=== PATIENT | male | born 1950 | race Caucasian/White ===

== ENCOUNTER 2016-05-16 23:45 | Observation (INO) ==
[2016-05-17] MEDS ORDERED: ASPIRIN PO STA (00:11)
--- NOTE | 2016-05-17 00:12 | PROVIDER DOCUMENTATION ---
HPI-Cardiac General - General Chief Complaint: Palpitations Stated Complaint: HEART RACING Time Seen by Provider: 05/17/16 00:10 Source: patient Allergies/Adverse Reactions: Patient Allergies Allergy/AdvReac Type Severity Reaction Status Date / Time Penicillins Allergy VOMITING Verified 05/17/16 00:12 Home Medications: Home Medication List Medication Instructions Recorded Confirmed Last Taken Type Clopidogrel [Plavix] 75 mg PO QPM 12/07/13 05/17/16 05/16/16 14:00 History Lisinopril/Hydrochlorothiazide 1 each PO QPM 12/07/13 05/17/16 05/16/16 14:00 History [Lisinopril-Hctz 20-12.5 mg Tab] Carvedilol Phosphate [Coreg Cr] 40 mg PO QPM 05/17/16 05/17/16 05/16/16 22:00 History FA/Arginine HCl/B12/B6/Pep Ex 1 each PO QPM 05/17/16 05/17/16 05/16/16 14:00 History [Cardiotek-Rx Tablet] Princeton-3 Acid Ethyl Esters [Lovaza] 1 gm PO BID 05/17/16 05/17/16 05/16/16 22:00 History - History of Present Illness-Cardiac Nature of Presenting Problem: 66 y/o WM present to the ED stating he feels his heart skipping a beat. At time he says it feels a little light headed other than that no chest pain and not SOB. Pt states his last stress test was less than 2 years ago and is followed by Dr [facility] [place]. Pt had a IN in 2008 and 1 stent and he is not experiencing any painin his chest at all tonight. Pt states this skipping has happened in the past and was told by Dr Gonzalez he was ok. Quality of Pain: reports: none Severity in ED: mild Onset/Duration: this evening Timing: still present Palpitation Quality: missing beats History of arrythmia: reports: none Recent use of:: reports: no stimulants Nitro Today/Relief: reports: no nitro taken today Aspirin Treatment Today: reports: no aspirin today Prior Chest Pain/Cardiac Workup: reports: cardiac cath, stress test Associated Symptoms: denies: dizziness, fever/chills, shortness of breath, syncope, vomiting Similar Symptoms Previously?: No Recently Seen Here or By Another Healthcare Provider: No Review of Systems - Adult - REVIEW OF SYSTEMS - ADULT Constitutional: denies: chills, fever Eyes: reports: no symptoms reported Ears, Nose, Mouth & Throat: reports: no symptoms reported Cardiovascular: reports: other (heart skipping a beat). denies: chest pain, edema Respiratory: denies: cough, shortness of breath, wheezing Gastrointestinal: denies: nausea, vomiting Genitourinary: reports: no symptoms reported Musculoskeletal: reports: no symptoms reported Integumentary: reports: no symptoms reported Neurological: reports: no symptoms reported Psychiatric: reports: no symptoms reported Endocrine: reports: no symptoms reported Hematologic/Lymphatic: reports: no symptoms reported Allergic/Immunologic: reports: no symptoms reported All Other Systems: Reviewed and Negative Past History - Adult - PAST MEDICAL HISTORY-ADULT Review of Records: reports: Old Records Reviewed, Nursing Assessment Review, Medications Reviewed Cardiovascular: reports: HTN, IN Gastrointestinal: reports: GERD - PRIOR SURGERIES/PROCEDURES Surgical/Procedure History: reports: cardiac stent, hernia repair - IMMUNIZATION STATUS Childhood Immunizations: NUTD Flu Vaccine: NUTD Physical Exam-General - PHYSICAL EXAM-ADULT Initial Vital Signs Reviewed: Yes - CONSTITUTIONAL General Appearance: appears well, alert, no apparent distress - EYES Eyes: PERRL/EOMI, pink conjunctivae - HEAD, EARS, NOSE, MOUTH & THROAT HENMT: moist mucous membranes, normal ENT inspection, TMs normal, pharynx normal - NECK Neck: non-tender, full range of motion, supple, normal inspection - RESPIRATORY Respiratory: lungs clear, normal breath sounds, no pleuratic chest pain, no respiratory distress, no accessory muscle use - CARDIOVASCULAR Cardiovascular: normal peripheral pulses, bradycardia, irregularly irregular - GASTROINTESTINAL (ABDOMEN) Abdominal Exam: normal bowel sounds, non tender, soft - MUSCULOSKELETAL Back Exam: normal inspection, no CVA tenderness, no vertebral tenderness Extremity: normal range of motion, non-tender, normal gait, normal inspection - SKIN Integumentary: normal color, normal turgor, warm/dry - NEUROLOGIC Neurologic: grossly normal, no motor/sensory deficits - PSYCHIATRIC Psych/Mental Status: normal mood/affect, normal thought content, normal thought process, oriented x 3 Progress - PLAN OF CARE/RESULTS Progress/Plan/Lab Results: Orders Category Date Time Status Cardiac Monitoring DIRECTED Care 05/17/16 00:11 Active Saline Loc NOW Care 03/16/17 00:11 Active CHEST-2 VIEWS [RAD] Stat Exams 05/17/16 00:11 Taken CBC WITH ELECTRONIC DIFF [HEME] Stat Lab 05/17/16 00:15 Completed CK PROFILE [SP CHEM] Stat Lab 05/17/16 00:15 Completed COMPREHENSIVE METABOLIC PANEL [CHEM] Stat Lab 05/17/16 00:15 Completed D-DIMER [CHEM] Stat Lab 05/17/16 00:15 Completed MAGNESIUM [CHEM] Stat Lab 05/17/16 00:15 Completed PRO B-NATRIURETIC PEPTIDE Stat Lab 05/17/16 00:15 Completed PROTIME WITH INR [COAG] Stat Lab 05/17/16 00:15 Completed PTT [COAG] Stat Lab 05/17/16 00:15 Completed TROPONIN T Stat Lab 05/17/16 00:15 Completed Aspirin Med 05/17/16 00:11 Discontinued 325 mg PO STAT STA EKG [EKG] Stat Ther 05/16/16 23:49 Ordered EKG [EKG] Stat Ther 05/17/16 01:29 Ordered Vital Signs Temp Pulse Resp BP Pulse Ox 05/17/16 01:15 52 L 16 140/87 97 05/17/16 00:54 49 L 15 147/88 95 05/17/16 00:17 55 L 15 169/96 99 05/17/16 00:01 97.5 F L 58 L 18 155/95 100 Penicillins Allergy (Verified 05/17/16 00:12) VOMITING Clopidogrel [Plavix] 75 mg PO QPM 12/07/13 Lisinopril/Hydrochlorothiazide [Lisinopril-Hctz 20-12.5 mg Tab] 1 each PO QPM Carvedilol Phosphate [Coreg Cr] 40 mg PO QPM 05/17/16 FA/Arginine HCl/B12/B6/Pep Ex [Cardiotek-Rx Tablet] 1 each PO QPM 05/17/16 Princeton-3 Acid Ethyl Esters [Lovaza] 1 gm PO BID 05/17/16 Laboratory 05/17/16 05/17/16 05/17/16 00:15 00:15 00:15 WBC RBC Hgb Hct MCV MCH MCHC RDW Std Deviation Plt Count MPV Immature Gran % (Auto) Neut % (Auto) Lymph % (Auto) Lake % (Auto) Eos % (Auto) Baso % (Auto) Immature Gran # (Auto) Neut # (Auto) Lymph # (Auto) Lake # (Auto) Eos # (Auto) Baso # (Auto) PT 9.9 INR 0.97 PTT (Actin FS) 25.5 D-Dimer Sodium Potassium Chloride Carbon Dioxide Anion Gap BUN Creatinine Estimated GFR/1.73 m2 BUN/Creatinine Ratio Glucose Calculated Osmolality Calcium Magnesium Total Bilirubin AST ALT Alkaline Phosphatase Creatine Kinase Troponin T < 0.010 Pey-K-Qomeqmxkyqf Pept 364 H Total Protein Albumin Globulin Albumin/Globulin Ratio 05/17/16 05/17/16 05/17/16 00:15 00:15 00:15 WBC 5.92 RBC 4.63 L Hgb 14.3 Hct 40.0 L MCV 86.4 MCH 30.9 MCHC 35.8 RDW Std Deviation 12.8 Plt Count 143 MPV 10.2 Immature Gran % (Auto) 0.0 Neut % (Auto) 55.3 Lymph % (Auto) 31.3 Lake % (Auto) 9.8 H Eos % (Auto) 3.4 Baso % (Auto) 0.2 Immature Gran # (Auto) 0.00 Neut # (Auto) 3.28 Lymph # (Auto) 1.85 Lake # (Auto) 0.58 Eos # (Auto) 0.20 Baso # (Auto) 0.01 PT INR PTT (Actin FS) D-Dimer < 0.10 Sodium 139 Potassium 3.7 Chloride 100 Carbon Dioxide 26 Anion Gap 13 BUN 22 Creatinine 1.3 H Estimated GFR/1.73 m2 56 BUN/Creatinine Ratio 17 Glucose 103 Calculated Osmolality 281 Calcium 9.5 Magnesium 2.1 Total Bilirubin 0.68 AST 16 ALT 16 Alkaline Phosphatase 52 Creatine Kinase 67 Troponin T Vym-L-Kjrnaddbxpp Pept Total Protein 6.9 Albumin 4.4 Globulin 2.5 Albumin/Globulin Ratio 1.8 Orders Category Date Time Status Cardiac Monitoring DIRECTED Care 05/17/16 00:11 Active Saline Loc NOW Care 05/17/16 00:11 Active CHEST-2 VIEWS [RAD] Stat Exams 05/17/16 00:11 Taken CBC WITH ELECTRONIC DIFF [HEME] Stat Lab 05/17/16 00:15 Completed CK PROFILE [SP CHEM] Stat Lab 05/17/16 00:15 Completed COMPREHENSIVE METABOLIC PANEL [CHEM] Stat Lab 05/17/16 00:15 Completed D-DIMER [CHEM] Stat Lab 05/17/16 00:15 Completed MAGNESIUM [CHEM] Stat Lab 05/17/16 00:15 Completed PRO B-NATRIURETIC PEPTIDE Stat Lab 05/17/16 00:15 Completed PROTIME WITH INR [COAG] Stat Lab 05/17/16 00:15 Completed PTT [COAG] Stat Lab 05/17/16 00:15 Completed TROPONIN T Stat Lab 05/17/16 00:15 Completed Aspirin Med 05/17/16 00:11 Discontinued 325 mg PO STAT STA EKG [EKG] Stat Ther 05/16/16 23:49 Ordered EKG [EKG] Stat Ther 05/17/16 01:29 Ordered - EKG 1 Time of EKG reading by physician:: 23:55 EKG Read and Signed by:: Leno Cha EKG Interpretation (*Must complete 3 of following elements*): Abnormal Rate: 57 Rhythm: Sinus Maninder Comments: anterseptal infarct, age undetermined 2 Time of EKG reading by physician:: 01:29 EKG Read and Signed by:: Leno Cha EKG Interpretation (*Must complete 3 of following elements*): Abnormal Rate: 48 Rhythm: Sinus Maninder Prior EKG Comparison: unchanged from prior Comments: anteroseptal infarct, age undetermined - XRAY 1 XRAY Study: Chest Impression: Normal XRAY Interpretation: no acute pathology, normal heart silhouette - CONSULTS/PCP/HOSPITALIST Notification #1 *Consult/PCP/Hospitalist*: Dr Darnell Time Discussed: 01:31 Reason/Comments: Admission Consult Disposition: Admit (accepts) Departure - Departure Time of Disposition Order: 01:41 DIAGNOSIS: Hypertensive urgency, Bradycardia Disposition: ADMITTED INPATIENT 09 Certified Medical Emergency: Emergent Condition: Stable Attestation - Scribe Verification/Attestation Scribe:: Abdirahman Dior Acting as Scribe for:: Leno Cha Scribe documention review:: This chart was documented by a scribe and accurately reflects the service the provider performed and the decisions made by the provider.
[2016-05-17 00:21] LABS: MANUAL DIFF NEEDED? NO
[2016-05-17 00:27] LABS: BASO% 0.2 % (0.0-0.8); EOS% 3.4 % (0.0-10.0); HEMOGLOBIN 14.3 g/dL (14.0-18.0); LYMPH# 1.85 X1000 (1.2-3.4); LYMPH% 31.3 % (20.5-51.1); MCH 30.9 PG (27-31); MCHC 35.8 g/dL (33-37); MCV 86.4 FL (81-99); MONO# 0.58 X1000 (0.11-0.59); MONO% 9.8 % (1.7-9.3); MPV 10.2 FL (7.4-10.4); NEUT% 55.3 % (42.2-75.2); PLT 143 X1000 (130-400); RBC 4.63 XMIL (4.7-6.1)
[2016-05-17 00:42] LABS: ALBUMIN 4.4 g/dL (3.5-5.0); CALCIUM 9.5 mg/dL (8.8-10.2); MAGNESIUM 2.1 mg/dL (1.5-2.7); POTASSIUM 3.7 mmol/L (3.5-5.1); TOTAL BILIRUBIN 0.68 mg/dL (0.20-1.00); TOTAL PROTEIN 6.9 g/dL (6.3-8.3)
[2016-05-17 00:47] LABS: INR 0.97; PROTIME 9.9 Seconds (9.2-11.7); PTT 25.5 Seconds (22.0-36.0)
[2016-05-17] MEDS ORDERED: ZOFRAN IV PRN (03:27)
--- NOTE | 2016-05-17 03:51 | HISTORY AND PHYSICAL ---
PRIMARY CARE PHYSICIAN: None. CHIEF COMPLAINT: Heart feels like it is skipping. HISTORY OF PRESENTING ILLNESS: This is a 66-year-old male with a history of coronary artery disease and hypertension who had presented to the emergency department with a 1-day history of noticing his heart was skipping. He stated that he took his medicines, Coreg. Then about an hour later, he felt like his heart was skipping. He was evaluated in the ER. It was noted that he was bradycardic with a heart rate around 40s. Due to his presenting symptoms, it was thought that he would need hospitalization for further management. At the time of my examination, he had denied any headache, fever, chills, chest pain, shortness of breath, hemoptysis, or any weight changes. He stated otherwise he felt okay. PAST MEDICAL HISTORY: Includes DE, coronary artery disease, hypertension. PAST SURGICAL HISTORY: Coronary stent, hernia repair. ALLERGIES: Penicillin. CURRENT MEDICATIONS: Listed as in the MAR. SOCIAL HISTORY: He is a former smoker. Denies any history of alcohol or illicit drug use. FAMILY HISTORY: Positive for coronary artery disease in mother. REVIEW OF SYSTEMS: Twelve point review of systems listed as in the HPI. Other systems were negative. PHYSICAL EXAMINATION: GENERAL: Cooperative, friendly male. He is resting comfortably now. VITAL SIGNS: Temperature 97.5 degrees, pulse 58, respirations 18, blood pressure 155/95. HEENT: Atraumatic, normocephalic. Extraocular movements intact. PERRLA. NECK: Supple. CHEST: Clear to auscultation. CARDIOVASCULAR: Regular rate and rhythm. ABDOMEN: Soft. Positive bowel sounds. EXTREMITIES: No edema. NEUROLOGIC: He is awake, alert, oriented x3. : No bladder distention. SKIN: Warm. LABORATORIES AND STUDIES: Sodium 139, potassium 3.7, chloride 100, CO2 is 26, BUN is 22, creatinine is 1.3, glucose is 103. ASSESSMENT: A 66-year-old male with a history of coronary artery disease and hypertension who had presented to the emergency department with a 1-day history of noticing his heart skipping. Apparently, he had taken a beta-jose r and subsequently his symptoms followed that. He was evaluated in the emergency room. He seemed to be bradycardic. Due to his presenting symptoms, we placed him for observation for further evaluation and management. 1. Bradycardia, probably medication-related. 2. History of coronary artery disease. 3. Hypertension. PLAN: 1. We will admit the patient to the medical floor with telemetry. 2. We will hold his beta jose r for right now. 3. We will consult cardiology. 4. We will monitor blood pressure closely and resume antihypertensive agent. 5. We will put patient on DVT prophylaxis with SCDs. 6. We will continue to follow and reassess.
--- NOTE | 2016-05-17 08:36 | Diag Imaging Result Document ---
PROCEDURE NAME: CHEST-2 VIEWS - 05/17/2016 PA AND LATERAL RADIOGRAPH OF THE CHEST: COMPARISON: None available. FINDINGS: There is a small nodular focus in the left perihilar region. This may actually represent a pulmonary vessel seen en face rather than a true lesion. The lungs are clear otherwise. There is no definite pleural fluid collection. Cardiac silhouette and central vasculature are grossly unremarkable. IMPRESSION: Questionable small nodular density in the left perihilar region. It may represent artifact. Consider evaluation with chest CT or, at least, a follow-up chest radiograph in 6 months. No definite acute pathology, otherwise. [facility]
[2016-05-17 09:00] VITALS: BP 107/73
[2016-05-17] MEDS ORDERED: LOVAZA PO SCH (09:00)
--- NOTE | 2016-05-17 09:48 | EKG Report ---
Test Performed on : 05/16/2016 11:55:35 PM Test Reason : PALPITATIONS Blood Pressure : / mmHG Vent. Rate : 057 BPM Atrial Rate : 057 BPM P-R Int : 182 ms QRS Dur : 090 ms QT Int : 442 ms P-R-T Axes : 046 027 092 degrees QTc Int : 430 ms Sinus bradycardia. Anteroseptal infarct , age undetermined Abnormal ECG No previous ECGs available Unconfirmed Result
--- NOTE | 2016-05-17 12:35 | PROGRESS NOTE ---
DATE: 05/17/2016 SUBJECTIVE: He presented on 05/17/2016. His heart feels like it is skipping. It has been going on a couple of days. HISTORY OF PRESENT ILLNESS: This is a 66-year-old with a history of coronary artery disease and hypertension who presented to the emergency department after a 1-day history of noticing his heart stopping or skipping. He states that he took his medication, Coreg, and then about 1 hour later, he felt like his heart was skipping. In the emergency room, it was noted he was in bradycardia, heart rate around 40s. Due to his presenting symptoms, it was thought that he would need hospitalization. Cardiology is evaluating. PAST MEDICAL HISTORY: Includes myocardial infarction, coronary artery disease, hypertension. PAST SURGICAL HISTORY: Coronary stent, hernia repair. ALLERGIES: To penicillin. PHYSICAL EXAMINATION: General: At the present time, awake and alert. Comfortable. No complaints. Vital Signs: Temperature 97.5 degrees, pulse 44, respirations 20, blood pressure 107/73. HEENT: Pupils equal, round, and reactive. CVP less than 6 cm. Lungs: Clear in all lung mary, anterior, posterior, lateral. Cardiovascular: Regular rhythm and irregular rate without murmur or S3, but he is in sinus bradycardia. Abdomen: Soft. Skin: Warm and dry. DIAGNOSTIC DATA: Lab work unremarkable. White count 5920, hematocrit 40, platelet count 143,000. Electrolytes unremarkable. Serum creatinine 1.3. Troponin less than 0.01. D-dimer less than 0.1. Chest x-ray, questionable small nodular density in the left perihilar region. It may represent artifact. Consider reevaluation with chest CT and follow up in about 6 months are recommended. No definite pathology. MEDICATIONS AT HOME.: Coreg, I am not sure of the dose; I guess his Coreg CR he has 40 mg p.m. Plavix 75 mg every night at bedtime, lisinopril/hydrochlorothiazide 20/12.5 daily, and omega-3 acid ethyl esters 1 p.o. b.i.d. ASSESSMENT AND PLAN: 1. Bradycardia, probably medication related, and he had some premature ventricular contractions. I think the plan is get an echocardiogram and stress nuclear stress test, rule out ischemia, as he does have a history of underlying coronary artery disease. 2. Hypertension, aware. 3. Hypercholesterolemia, aware. 4. No other significant past medical history. 5. Review of his present orders, I do not see anything to change at this point. I think they are planning an echocardiogram and stress test. 6. He is on Plavix 75 mg a day, lisinopril/ hydrochlorothiazide 1 a day, omega-3 acid 1 gram b.i.d., aspirin 325 mg a day.
--- NOTE | 2016-05-17 13:53 | CONSULTATION ---
DATE OF CONSULTATION: 05/17/2016 IMPRESSION: 1. Palpitations. 2. Sinus bradycardia with heart rate in the 45 beat per minute range. 3. Atherosclerotic coronary disease with history of anterolateral myocardial infarction in 2008, complicated by ventricular arrhythmias. Patient had percutaneous coronary intervention to left anterior descending coronary artery following successful resuscitation. His coronary intervention procedure was performed in [facility] by Dr. Gonzalez. Chest symptoms associated with his myocardial infarction consisted of burning chest symptoms and feeling hot all over. These symptoms have not recurred. 4. Chronic recurrent burning indigestion discomfort attributed to esophageal disorder. Patient treating this with antacids as needed. 5. History of previous episode of atrial fibrillation. 6. Hypertension. 7. Mild hypercholesteremia in the past. Patient previously treated with pravastatin, but relates not feeling well taking this medication and he ultimately came off of pravastatin with reportedly acceptable lipid profile. RECOMMENDATIONS: 1. Telemetry observation. 2. Noninvasive cardiac evaluation with echocardiography and stress myocardial perfusion imaging given patient's recurrent atypical chest symptoms. 3. Consider proton pump inhibitor. Patient prefers to hold off on this and continue with antacids as needed for his burning chest discomfort. 4. Reduce carvedilol dose given significant bradycardia. 5. Consider outpatient ambulatory ECG monitoring if patient's palpitations persistently recur. HISTORY: This is a 66-year-old, white male, with past history of previous anterolateral myocardial infarction in 2008, complicated by ventricular arrhythmias, emergent angioplasty stenting of left anterior descending coronary in 2008 at [facility] by Dr. Gonzalez, and hypertension, presented to the emergency room with complaint of palpitations, as well as some chest discomfort. He relates that with his previous myocardial infarction he had a vague burning discomfort in his chest. This particular symptom does not seem to have recurred. However, he has a long history of what he refers to as esophageal spasm, which has caused some burning, indigestion like discomfort for which he takes antacids on an as needed basis. He is fairly active and denies any exertional chest discomfort. He recently started experiencing some palpitations. He describes his palpitations as more of a momentary forceful beat. He denies tachycardia. There has been no lightheadedness or syncope. Because of the symptoms he came to the emergency room for evaluation. Was noted to have sinus bradycardia with heart rate around 45 beats per minute persistently. PAST MEDICAL HISTORY: 1. Atherosclerotic coronary disease as outlined above. 2. Hypertension. 3. Mild hyperglycemia in the past. 4. Chronic esophageal disorder, causing indigestion like burning discomfort in the chest, for which patient takes antacids on an as needed basis. 5. History of previous episode of atrial fibrillation in the past. 6. Status post hernia repair. 7. Penicillin allergy. MEDICATIONS: Prior to admission as listed. SOCIAL HISTORY: He is retired from work with [employer]. He worked as a safety security officer. He does not smoke. He does not currently use alcohol. FAMILY HISTORY: Negative for premature coronary disease. ALLERGIES: He is allergic or intolerant to penicillin. REVIEW OF SYSTEMS: Pulmonary: Negative. Gastrointestinal: Noncontributory beyond history of present illness. Constitutional: Negative beyond history of present illness. Remainder of review of systems negative/noncontributory beyond history of present illness with 14 total systems reviewed. PHYSICAL EXAM: General: This is a pleasant, middle-aged male, in no distress. Vital Signs: As recorded are stable. HEENT Exam: Extraocular muscle intact. Mucous membranes moist. Neck: Supple. No JV distention. There are no carotid bruits. Chest: Clear to auscultation. Cardiac: Reveals a regular bradycardia without appreciable murmur or gallop. Abdomen: Soft, nontender. Bowel sounds normal. Extremities: Without edema. Neurologic Exam: Reveals him to be alert and fully oriented. Speech is fluent. He moves all 4 extremities equally well. Skin: Warm and dry. Psych: Exam reveals mood to be appropriate. DIAGNOSTIC STUDIES: ECG demonstrates sinus bradycardia and anterior infarct, old.
--- NOTE | 2016-05-17 14:26 | Diag Imaging Result Document ---
PROCEDURE NAME: MYOCARDIAL PERF SCAN, STR/REST - 05/17/2016 EXERCISE CARDIOLITE STRESS TEST: Baseline electrocardiogram revealed normal sinus rhythm, old anterior myocardial infarction. Patient exercised on Ramon protocol for 11 minutes to a peak heart rate of 146, 93% predicted maximal heart rate achieved, 138% exercise capacity. There was no chest pain. Normal blood pressure response to exercise. There were dysrhythmias noted. Stress electrocardiogram was negative for ischemia. Following exercise stress test Cardiolite was injected, 12.8 mCi of Cardiolite was injected for the rest phase, 36.6 mCi of Cardiolite was injected for the stress phase. Gated SPECT images were obtained in standard views. Images revealed large size, severe grade, fixed defect in the anterior wall and in the left ventricular apex and in the septum diagnostic of infarct or scar. There is no evidence of ischemia. Left ventricular ejection fraction by gated SPECT was 58%. There is apical hypokinesis. CONCLUSIONS: 1. No chest pain. 2. Negative exercise stress electrocardiogram at excellent workload. 3. Myocardial perfusion images revealed no evidence of ischemia. 4. There was large size, severe grade, fixed defect in the anterior wall, in the apex, and in the septum wall diagnostic of infarct or scar. Left ventricular ejection fraction 58%. Apical hypokinesis.
--- NOTE | 2016-05-17 15:32 | ECHO REPORT ---
ORDER DATE: 05/17/2016 ECHOCARDIOGRAPHIC MEASUREMENTS: 1. Interventricular septum 0.9. 2. Left ventricular posterior wall 0.9. 3. Diastolic diameter 5.2. 4. Left atrium 3.6. 5. Aorta 3.1. FINDINGS: 1. Normal left ventricular cavity size. Estimated ejection fraction of 45%. There is distal anteroapical akinesis. 2. Aortic valve leaflets are trileaflet. Mitral valve was normal. Tricuspid valve was normal. Pulmonic valve was normal. 3. Peak velocity across the aortic valve less than 2 m/sec. There is no aortic stenosis or regurgitation. There is mild mitral regurgitation. 4. Mild tricuspid regurgitation. Peak velocity across the tricuspid valve was 2.5 m/sec. Pulmonary artery systolic pressure of 35 mmHg. 5. There is trace pulmonary regurgitation. 6. There is no pericardial effusion or obvious intracardiac mass or thrombus seen.
[2016-05-17] MEDS ORDERED: PATIENT'S OWN MED PO SCH (21:00)
[2016-05-17] MEDS ORDERED: PRINZIDE 20/12.5MG PO SCH (21:00)
[2016-05-17] MEDS ORDERED: PLAVIX PO SCH (21:00)
--- NOTE | 2016-05-18 20:41 | DISCHARGE SUMMARY ---
ADMISSION DATE: 05/17/2016 DISCHARGE DATE: 05/17/2016 Mr. Couch was admitted really to observation on this morning, 05/17/2016. It felt like his heart was skipping. A 66-year-old with history of coronary artery disease and hypertension who presented to the emergency room department with 1-day history of noticing his heart was skipping. He stated that he took his medications, Coreg, and about an hour later it felt like his heart was skipping. He was evaluated in ER and noted that he had bradycardia and a heart rate in the 40s, sinus bradycardia. Due to his symptoms, thought that he would need hospitalization, but we put him in observation. Echocardiogram was performed. He has an apical scar, and myocardial perfusion scan performed, he has no sign of reversible ischemia. There was a large size severe grade fixed defect in the anterior wall of the apex in the septal diagnostic of infarct or scar. Ejection fraction by nuclear scan was 58%, by echo was estimated to be around about 45%. He felt good. We do feel like we ought to reduce his Coreg from 40 to 20 mg. I felt he could go home on the evening of 05/17/2016. We will have him on Plavix 75 mg a day, Prinzide 20/12.5 one a day, omega-3 acid ethyl esters which is Lovaza 1 g b.i.d., and then we will cut his Coreg down to 20 mg Coreg CR 20 mg daily, and follow up with his primary care, and follow up with Cardiology.
== END 2016-05-17 17:55 | disposition home or self-care (01) ==
LOC: ED 23:45 → EDIPHOLD 05-17 04:35 → 4N 05-17 13:41
PROVIDERS: ATTEND Emergency Medicine
DX: R00.1 Bradycardia, unspecified (principal); I10 Essential (primary) hypertension; R00.2 Palpitations; I25.10 Atherosclerotic heart disease of native coronary artery without angina pectoris; E78.00 Pure hypercholesterolemia, unspecified; I48.0 Paroxysmal atrial fibrillation; R91.8 Other nonspecific abnormal finding of lung field; K22.4 Dyskinesia of esophagus; R42 Dizziness and giddiness; I25.2 Old myocardial infarction; Z95.5 Presence of coronary angioplasty implant and graft; Z87.891 Personal history of nicotine dependence; Z79.02 Long term (current) use of antithrombotics/antiplatelets; Z79.899 Other long term (current) drug therapy; Z82.49 Family history of ischemic heart disease and other diseases of the circulatory system
CPT/HCPCS: 71020; 78452; 80053; 82550; 83735; 83880; 84484; 85025; 85379; 85610; 85730; 93005; 93017; 93306; 99285; A9500